=== PATIENT | male | born 1950 | race Caucasian/White ===

== ENCOUNTER 2022-10-13 12:33 | Emergency (ER) | payer OTHER ==
[~2022-10-13] VITALS: Ht 180.3 cm; Wt 72.1 kg
[2022-10-13] MEDS ORDERED: TENORMIN25 MG PO (12:58)
[2022-10-13] MEDS ORDERED: TAMS0.4C PO (13:04)
[2022-10-13] MEDS ORDERED: ZESTRIL10 M1 PO (13:05)
[2022-10-13] MEDS ORDERED: FINASTERIDE1 MG PO (13:05)
== END 2022-10-13 17:33 | disposition home or self-care (01) ==
LOC: ER 12:33
DX: R07.89 Other chest pain (principal); I10 Essential (primary) hypertension; Z20.822 Contact with and (suspected) exposure to COVID-19